=== PATIENT | male | born 1935 | race Two or more races ===

== ENCOUNTER 2017-07-20 07:15 | Outpatient (CLI) | payer OTHER | END 2017-07-20 08:00 | disposition home or self-care (01) | LOC: NUCLEAR 07:15 | DX: R94.31 Abnormal electrocardiogram [ECG] [EKG] (principal) | CPT/HCPCS: 78452; 93017; A9500 ==

== ENCOUNTER 2017-08-19 14:03 | Outpatient (CLI) | payer OTHER | END 2017-08-19 14:19 | disposition home or self-care (01) | LOC: SONOGRAMA 14:03 | DX: M76.62 Achilles tendinitis, left leg (principal) ==

== ENCOUNTER 2017-12-08 10:24 | Outpatient (CLI) | payer OTHER | END 2017-12-08 11:56 | disposition home or self-care (01) | LOC: RAD 501 10:24 | DX: M19.022 Primary osteoarthritis, left elbow (principal) ==

== ENCOUNTER → 2018-05-17 | Outpatient (CLI) | payer OTHER | END | disposition home or self-care (01) | LOC: RAD 501 10:05 | DX: M19.072 Primary osteoarthritis, left ankle and foot (principal) ==

== ENCOUNTER 2018-05-19 09:53 | Outpatient (CLI) | payer OTHER | END 2018-05-19 10:22 | disposition home or self-care (01) | LOC: SONOGRAMA 09:53 → MAMO-SONO 10:15 → SONOGRAMA 10:22 | DX: M19.072 Primary osteoarthritis, left ankle and foot (principal) ==

== ENCOUNTER 2019-05-14 13:42 | Emergency (ER) | payer OTHER ==
[~2019-05-14] VITALS: Ht 180.3 cm; Wt 83.9 kg
[2019-05-14] MEDS ORDERED: AZOR 5-20 MG T1 EACH PO (14:44)
[2019-05-14] MEDS ORDERED: TERAZOSIN HCL2 M1 PO (14:45)
[2019-05-14] MEDS ORDERED: SIMVASTATIN5 MG (14:45)
[2019-05-14] MEDS ORDERED: [UNRECOGNIZED DRUG - OTHER] (14:45)
[2019-05-14] MEDS ORDERED: FINASTERIDE5 MG PO (14:46)
[2019-05-14] MEDS ORDERED: SYNTHAMIN 173000 ML (14:46)
== END 2019-05-14 17:50 | disposition home or self-care (01) ==
LOC: ER 13:42
DX: R53.81 Other malaise (principal)

== ENCOUNTER 2019-05-16 07:27 | Outpatient (CLI) | payer OTHER ==
[~2019-05-16 07:27] MED LIST: AZOR 5-20 MG T1 EACH PO; FINASTERIDE5 MG PO; SIMVASTATIN5 MG; SYNTHAMIN 173000 ML; TERAZOSIN HCL2 M1 PO; [UNRECOGNIZED DRUG - OTHER]
== END 2019-05-16 08:22 | disposition home or self-care (01) ==
LOC: NUCLEAR 07:27
DX: I11.9 Hypertensive heart disease without heart failure (principal); I25.10 Atherosclerotic heart disease of native coronary artery without angina pectoris
CPT/HCPCS: 78452; 93017; A9500

== ENCOUNTER 2019-06-20 08:50 | Outpatient (CLI) | payer OTHER | END 2019-06-20 08:52 | disposition home or self-care (01) | LOC: SONOGRAMA 08:50 | DX: R10.84 Generalized abdominal pain (principal) ==

== ENCOUNTER 2020-12-04 12:52 | Outpatient (CLI) | payer OTHER | END 2020-12-04 13:05 | disposition home or self-care (01) | LOC: TOM 12:52 | PROVIDERS: ATTEND Internal Medicine Cardiovascular Disease | DX: G93.89 Other specified disorders of brain (principal) ==

== ENCOUNTER → 2020-12-20 07:46 | Outpatient (CLI) | payer OTHER | END | disposition home or self-care (01) | LOC: NUCLEAR 07:00 | PROVIDERS: ATTEND Internal Medicine Cardiovascular Disease | DX: R07.89 Other chest pain (principal); I50.1 Left ventricular failure, unspecified | CPT/HCPCS: 78452; 93017; A9500 ==

== ENCOUNTER 2021-04-24 16:50 | Emergency (ER) | payer OTHER ==
[~2021-04-24] VITALS: Ht 180.3 cm; Wt 81.6 kg
[2021-04-24] MEDS ORDERED: LIPITOR40 M1 PO (17:00)
[2021-04-24] MEDS ORDERED: ZYLOPRIM100 M1 PO (17:01)
[2021-04-24] MEDS ORDERED: INDAPAMIDE1.25 MG PO (17:01)
[2021-04-24] MEDS ORDERED: TOPROL XL25 M1 PO (17:02)
[2021-04-24] MEDS ORDERED: PLAVIX75 MG PO (17:02)
[2021-04-24] MEDS ORDERED: NITROGLYCERIN0.4 MG SL (17:02)
== END 2021-04-24 18:10 | disposition home or self-care (01) ==
LOC: ER 16:50
DX: I10 Essential (primary) hypertension (principal)

== ENCOUNTER 2022-01-13 08:20 | Outpatient (CLI) | payer OTHER ==
[~2022-01-13 08:20] MED LIST changes: +INDAPAMIDE1.25 MG PO; +LIPITOR40 M1 PO; +NITROGLYCERIN0.4 MG SL; +PLAVIX75 MG PO; +TOPROL XL25 M1 PO; +ZYLOPRIM100 M1 PO
== END 2022-01-13 08:23 | disposition home or self-care (01) ==
LOC: NUCLEAR 08:20
PROVIDERS: ATTEND Internal Medicine Cardiovascular Disease
DX: I10 Essential (primary) hypertension (principal)

== ENCOUNTER 2022-12-18 07:27 | Outpatient (CLI) | payer OTHER | END 2022-12-18 07:29 | disposition home or self-care (01) | LOC: NUCLEAR 07:27 | PROVIDERS: ATTEND Internal Medicine | DX: I25.118 Atherosclerotic heart disease of native coronary artery with other forms of angina pectoris (principal); I11.9 Hypertensive heart disease without heart failure; E78.2 Mixed hyperlipidemia | CPT/HCPCS: 78452; 93017; A9500 ==